=== PATIENT | male | born 1985 | race Caucasian/White ===

== ENCOUNTER 2022-07-17 14:22 | Observation (INO) ==
--- NOTE | 2022-07-17 14:25 | DR.GENAD ---
HPI Time Seen Time Seen by Provider: 07/17/22 14:34 ROS Review of Systems Constitutional: No Symptoms Reported; negative Fever Eyes: No Symptoms Reported ENTM: No Symptoms Reported; negative Nose Discharge or Nose Congestion Respiratoy: No Symptoms Reported; negative Moist Cough or Short of Breath Cardiovascular: No Symptoms Reported; negative Chest Pain Gastrointestinal/Abdominal: No Symptoms Reported and Abdominal Pain (LT INGUINAL HERNIA THAT IS PAINFUL.); negative Diarrhea or Vomiting Genitourinary: No Symptoms Reported; negative Dysuria Neurological: No Symptoms Reported Musculoskeletal: No Symptoms Reported Integumentary: No Symptoms Reported; negative Rash or Juandice Hematologic/Lymphatic: No Symptoms Reported; negative Easy Bruising Endocrine: No Symptoms Reported; negative Increased Thirst or Increased Urine Psychiatric: No Symptoms Reported All Other Systems: Reviewed and Negative PE Vital Signs Vitals: Temperature 98.0 F Pulse Rate 66 Respiratory Rate 17 Blood Pressure 138/76 O2 Sat by Pulse Oximetry 99 General Limitations: No Limitations General Appearance: Alert and In No Apparent Distress Head Head Exam: Normal Inspection Eyes Eye exam: Normal Appearance, PERRL and EOMI; negative Scleral Icterus or Conjunctival Injection ENT ENT Exam: Normal Exam, Normal Oropharynx, Normal External Ear Exam and TM's Normal Bilaterally Neck Neck Exam: Normal Inspection and Trachea Midline; negative Tenderness Chest Chest Inspection: Normal Inspection and Symmetric Chest Wall Rise; negative Tenderness Respiratory Respiratory Exam: Normal Lung Sounds Bilat; negative Accessory Muscle Use, Chest Wall Tenderness or Respiratory Distress Respiratory Exam: Bilateral: Clear to Auscultation Cardiovascular Cardiovascular Exam: Regular Rate, Normal Rhythm and Normal Heart Sounds; negative Systolic Murmur or Diastolic Murmur Abdominal Exam Abdominal Exam: Normal Inspection, Normal Bowel Sounds and Soft; negative Tenderness Extremities Extremities Exam: Normal Inspection and Normal Capillary Refill; negative Tend erness Back Back Exam: Normal Inspection; negative (R) CVA Tenderness or (L) CVA Tenderness Neurologic Neurological Exam: Alert, Oriented X3, CN II-XII Intact and Normal Gait; negative Motor Sensory Deficit Psychiatric Psychiatric Exam: Normal Affect and Normal Mood Skin Skin Exam: Intact MDM Differential Diagnosis Differential Diagnosis: LEFT INGUINAL HERNIA, LLQ ABDOMINAL PAIN COURSE Treatment Treatment: SEE ORDERS DONE WHILE PATIENT WAS IN ER. NS 1L IV BOLUS WHILE IN ER AND ZOFRAN 4MG IV AND DEMOROL 25MG IV WHILE IN ER. PAIN IMPROVING. Consultation Consultation Comments: DISCUSSED PATIENT WITH DR. BERNSTEIN. TO ADMIT NPO TO HIS SERVICE. Education/Counseling Education/Counseling: Patient Educated On: Diagnosis ROR Labs Reviewed Result Diagrams: 07/17/22 14:55 07/17/22 14:55 Laboratory: WBC 8.0 X10^3/uL (3.6-10.0) 07/17/22 14:55 RBC 5.43 X10^6/uL (4.7-6.0) 07/17/22 14:55 Hgb 15.8 g/dL (13.5-18.0) 07/17/22 14:55 Hct 47.3 % (42.0-54.0) 07/17/22 14:55 MCV 87.1 fL (80.0-100.0) 07/17/22 14:55 MCH 29.1 pg (27.0-34.0) 07/17/22 14:55 MCHC 33.4 g/dL (33.0-35.0) 07/17/22 14:55 RDW 13.7 % (11.6-16.5) 07/17/22 14:55 Plt Count 292 X10^3/uL (150.0-450.0) 07/17/22 14:55 MPV 8.0 fL (7.4-11.0) 07/17/22 14:55 Neut % (Auto) 59.8 % (42.0-75.0) 07/17/22 14:55 Lymph % (Auto) 24.9 % (21.0-51.0) 07/17/22 14:55 [place] % (Auto) 6.1 % (0.0-13.0) 07/17/22 14:55 Eos % (Auto) 8.6 % (0.9-2.9) H 07/17/22 14:55 Baso % (Auto) 0.6 % (0.2-1.0) 07/17/22 14:55 Neut # (Auto) 4.8 x10^3/uL (2.2-4.8) 07/17/22 14:55 Lymph # (Auto) 2.0 X10^3/uL (1.3-2.9) 07/17/22 14:55 [place] # (Auto) 0.5 x10^3/uL (0.3-0.8) 07/17/22 14:55 Eos # (Auto) 0.7 x10^3/uL (0.0-0.2) H 07/17/22 14:55 Baso # (Auto) 0.1 X10^3/uL (0.0-0.1) 07/17/22 14:55 Absolute Nucleated RBC 0.0 /100WBC 07/17/22 14:55 Sodium 142 mmol/L (136-145) 07/17/22 14:55 Corrected Sodium TNP 07/17/22 14:55 Potassium 4.7 mmol/L (3.5-5.1) 07/17/22 14:55 Chloride 103 mmol/L (98-107) 07/17/22 14:55 Carbon Dioxide 35.5 mmol/L (21-32) H 07/17/22 14:55 BUN 11 mg/dL (7-18) 07/17/22 14:55 Creatinine 1.00 mg/dL (0.70-1.30) 07/17/22 14:55 Est GFR (MDRD) Af Amer > 60 (>60) 07/17/22 14:55 Est GFR (MDRD) Non-Af > 60 (>60) 07/17/22 14:55 Glucose 100 mg/dL (65-99) H 07/17/22 14:55 Calcium 9.0 mg/dL (8.5-10.1) 07/17/22 14:55 Corrected Calcium TNP 07/17/22 14:55 Total Bilirubin 0.30 mg/dL (0.2-1.0) 07/17/22 14:55 AST 12 Units/L (15-37) L 07/17/22 14:55 ALT 17 Units/L (12-78) 07/17/22 14:55 Alkaline Phosphatase 72 Units/L (46-116) 07/17/22 14:55 Total Protein 6.7 g/dL (6.4-8.2) 07/17/22 14:55 Albumin 4.1 g/dL (3.4-5.0) 07/17/22 14:55 Globulin 2.6 g/dL (2.5-4.5) 07/17/22 14:55 Albumin/Globulin Ratio 1.6 Ratio (1.1-2.1) 07/17/22 14:55 Specimen Type Clean catch urine 07/17/22 14:50 Urine Color Yellow (YELLOW) 07/17/22 14:50 Urine Appearance Clear (CLEAR) 07/17/22 14:50 Urine pH 8.0 (5.0 - 8.0) 07/17/22 14:50 Ur Specific [place] 1.015 (1.000-1.030) 07/17/22 14:50 Urine Protein Negative (NEGATIVE) 07/17/22 14:50 Urine Glucose (UA) Negative (NEGATIVE) 07/17/22 14:50 Urine Ketones Negative (NEGATIVE) 07/17/22 14:50 Urine Blood Negative (NEGATIVE) 07/17/22 14:50 Urine Nitrite Negative (NEGATIVE) 07/17/22 14:50 Urine Bilirubin Negative (NEGATIVE) 07/17/22 14:50 Urine Urobilinogen Normal (NORMAL) 07/17/22 14:50 Ur Leukocyte Esterase Negative (NEGATIVE) 07/17/22 14:50 Opioid Opioid Risk Tool Total: 0 Total Score Risk Category: Low Risk Copyright: Fredy FARAH predicting aberrant behaviors Discharge Plan Discharge Plan Patient Disposition: 01 HOME, SELF-CARE Condition: Stable Prescriptions: No Action [facility] Concerns: Post Hospitalization: new medications and changes needed to prevent readmission or further decline. Pt educated and given instructions on all concerns. Plan of Treatment: Continue with present treatment and follow up plan. Pt is to keep follow up appointment as instructed and take medications as ordered. Orders to Discharge Patient Discharge Orders: Transfer (Routine); Ordered 07/17/22 Ordered By: OLEGARIO ESCOBEDO Follow ups/Referrals Follow ups/Referrals: [facility],None [Primary Care Provider] - 3 days
[2022-07-17 14:35] VITALS: BMI 22.4
[2022-07-17] MEDS ORDERED: ZOFRAN INJ 4 MG VIAL IVP ONE (14:52)
[2022-07-17] MEDS ORDERED: DEMEROL INJ IVP ONE (14:52)
[2022-07-17] MEDS ORDERED: NS 1,000 ML IV 1,000 ML IV ONE (14:53)
[2022-07-17] MEDS ORDERED: DEMEROL INJ ONE (15:02)
[2022-07-17] MEDS ORDERED: ZOFRAN INJ 4 MG VIAL ONE (15:02)
[2022-07-17] MEDS ORDERED: NS 1,000 ML IV 1,000 ML ONE (15:03)
[2022-07-17 15:07] LABS: BILIRUBIN,URINE NEGATIVE (NEGATIVE); BLOOD/HEMOGLOBIN,URINE NEGATIVE (NEGATIVE); GLUCOSE, URINE NEGATIVE (NEGATIVE); KETONES,URINE NEGATIVE (NEGATIVE); LEUKOCYTE ESTERASE ,URINE NEGATIVE (NEGATIVE); NITRITES,URINE NEGATIVE (NEGATIVE); PROTEIN,URINE NEGATIVE (NEGATIVE); UROBILINOGEN,URINE NORMAL (NORMAL)
[2022-07-17 15:08] LABS: BASOPHILS # (AUTO) 0.1 X10^3/uL (0.0-0.1); BASOPHILS % (AUTO) 0.6 % (0.2-1.0); EOSINOPHILS # (AUTO) 0.7 x10^3/uL (0.0-0.2); EOSINOPHILS % (AUTO) 8.6 % (0.9-2.9); HEMATOCRIT 47.3 % (42.0-54.0); HEMOGLOBIN 15.8 g/dL (13.5-18.0); LYMPHOCYTES % (AUTO) 24.9 % (21.0-51.0); MEAN CORPUSCULAR HEMOGLOBIN 29.1 pg (27.0-34.0); MEAN CORPUSCULAR HGB CONC 33.4 g/dL (33.0-35.0); MEAN CORPUSCULAR VOLUME 87.1 fL (80.0-100.0); MONOCYTES # (AUTO) 0.5 x10^3/uL (0.3-0.8); MONOCYTES % (AUTO) 6.1 % (0.0-13.0); NEUTROPHILS # (AUTO) 4.8 x10^3/uL (2.2-4.8); NEUTROPHILS % (AUTO) 59.8 % (42.0-75.0); RED BLOOD COUNT 5.43 X10^6/uL (4.7-6.0); RED CELL DISTRIBUTION WIDTH 13.7 % (11.6-16.5)
[2022-07-17 15:13] LABS: APPEARANCE,URINE CLEAR (CLEAR); COLOR,URINE YELLOW (YELLOW)
--- NOTE | 2022-07-17 15:17 | CT ---
HISTORYPAINSTUDYABDOMEN/PELVIS W/O CONCOMPARISONNoneTECHNIQUEMultiple axial images of the abdomen and pelvis were obtained from the lung bases to the pubic symphysis without the administration of IV contrast. Dose reduction techniques including Automated Exposure Control (AEC) and adjustment of mA and kV were utilized.FINDINGSThe visualized portions of the lung bases are unremarkable . The liver, spleen, pancreas, kidneys, and adrenal glands are unremarkable in their CT appearance. The gallbladder is unremarkable in its CT appearance . No significant mesenteric lymphadenopathy or stranding can be observed. No free fluid or free air is seen within the abdomen. No bowel wall thickening or bowel dilatation is present. The colon is unremarkable. Specifically, there is no diverticulosis noted within the sigmoid colon. The appendix is not definitively seen however there are no secondary signs to suggest appendicitis.. The urinary bladder is grossly unremarkable. The bony structures are grossly intact.IMPRESSIONUnremarkable CT of the abdomen and pelvis.Electronically signed by: ANNA FERRER (Jul 17, 2022 15:16:44)
[2022-07-17 15:19] LABS: ALANINE AMINOTRANSFERASE 17 Units/L (12-78); ALBUMIN 4.1 g/dL (3.4-5.0); ALKALINE PHOSPHATASE 72 Units/L (46-116); ASPARTATE AMINO TRANSFERASE 12 Units/L (15-37); BLOOD UREA NITROGEN 11 mg/dL (7-18); CARBON DIOXIDE 35.5 mmol/L (21-32); CHLORIDE 103 mmol/L (98-107); SODIUM 142 mmol/L (136-145); TOTAL PROTEIN 6.7 g/dL (6.4-8.2); eGFR NON BLACK RACES > 60 (>60)
[2022-07-17] MEDS ORDERED: ZOFRAN INJ 4 MG VIAL IVP PRN (17:03)
[2022-07-17] MEDS ORDERED: NS 1,000 ML IV 1,000 ML IV SCH (17:03)
[2022-07-17] MEDS ORDERED: MORPHINE SULFATE INJ 2 MG INJ IVP PRN (17:03)
[2022-07-17 21:18] VITALS: BP 129/59
== END 2022-07-17 20:56 | disposition left against medical advice (07) ==
LOC: MED/SURG 14:22 → ER 14:22 → MED/SURG 16:49
PROVIDERS: ADMIT Surgery; ATTEND Surgery
DX: Z53.29 Procedure and treatment not carried out because of patient's decision for other reasons; K40.90 Unilateral inguinal hernia, without obstruction or gangrene, not specified as recurrent; R10.84 Generalized abdominal pain